=== PATIENT | male | born 1985 | race Caucasian/White ===

== ENCOUNTER → 2017-01-10 20:58 | Emergency (ER) | payer OTHER ==
[2017-01-10 21:22] VITALS: BP 134/79
--- NOTE | 2017-01-10 21:29 | UC ---
Lower Extremity/Ankle HPI - HPI Summary HPI Summary: Pt here w/ Rt ankle injury while playing soccer tonight. Inversion injury upon being tackled. Pain touch, movement and weight bearing. Swelling over Rt lateral ankle - some tingling around this. Denies pain in foot/toes. Took excederin prior to arrival. Using crutches to ambulate. - History of Current Complaint Chief Complaint: UCLowerExtremity Stated Complaint: ANKLE INJURY Time Seen by Provider: 01/10/17 21:23 Hx Obtained From: Patient - Allergies/Home Medications Allergies/Adverse Reactions: Allergies Allergy/AdvReac Type Severity Reaction Status Date / Time No Known Allergies Allergy Unverified 01/10/17 21:22 PMH/Surg Hx/FS Hx/Imm Hx Previously Healthy: Yes - Surgical History Surgical History: None Surgery Procedure, Year, and Place: TOOTH REMOVED SURGICALLY - Social History Lives: With Family Alcohol Use: Occasionally Substance Use Type: None Smoking Status (MU): Never Smoked Tobacco Review of Systems Constitutional: Negative Motor: Other - see HPI Neurovascular: Other - see HPI Musculoskeletal: Other: - see HPI Neurological: Other - see HPI Psychological: Negative Is Patient Immunocompromised?: No All Other Systems Reviewed And Are Negative: Yes Physical Exam Triage Information Reviewed: Yes Appearance: Well-Appearing, Well-Nourished Vital Signs: Initial Vital Signs Temp 97.7 F 01/10/17 21:16 Pulse 84 01/10/17 21:16 Resp 16 01/10/17 21:16 BP 134/79 01/10/17 21:16 Pulse Ox 99 01/10/17 21:16 Vital Signs Reviewed: Yes Eye Exam: Normal ENT Exam: Normal Cardiovascular: Positive: Pulses Normal, Brisk Capillary Refill Musculoskeletal: Positive: ROM Limited @ - Rt ankle; toes FROM, Edema @ - Rt lateral ankle w/ gross edema - superior malleolus TTP, Other: - MT's and toes NTTP; tibia NTTP Psychological Exam: Normal Skin: Positive: Other - mild erythema along edema of RT lateral ankle Lower Extremity Course/Dx - Course Course Of Treatment: Pt presents w/ acute Rt anklen injury after inversion injury playing soccer. XR reveals no fx however pt has moderate to severe edema here. RICE + crutches and follow-up with ortho tomorrow. - Differential Dx/Diagnosis Provider Diagnoses: RIGHT ANKLE SPRAIN Discharge - Discharge Plan Condition: Stable Disposition: HOME Patient Education Materials: Ankle Sprain (ED), Crutch Instructions (ED) Forms: *Work Release Referrals: Lalit Jessica MD [Medical Doctor] - Additional Instructions: Rest, ice, elevate No weight bearing - use crutches Gentle compression with MARII wrap Ibuprofen 600mg every 6 hours with food for pain and swelling Follow-up with orthopedics tomorrow -call in the morning *If you develop worsening of swelling, numbness, coolness of extremity, go to ED
--- NOTE | 2017-01-10 21:41 | RAD ---
INDICATION: Right ankle injury. TECHNIQUE: 3 views of the right ankle were obtained. FINDINGS: Soft tissue swelling is noted along the anterolateral aspect of the ankle. No fracture is seen. Joint spaces appear maintained. IMPRESSION: SOFT TISSUE SWELLING, NO FRACTURE IS SEEN.
== END | disposition home or self-care (01) ==
LOC: UCEAST 20:58
DX: S93.401A Sprain of unspecified ligament of right ankle, initial encounter (principal); X50.9XXA Other and unspecified overexertion or strenuous movements or postures, initial encounter; Y93.66 Activity, soccer; Y92.322 Soccer field as the place of occurrence of the external cause